=== PATIENT | male | born 1985 | race Hispanic/Latino ===

== ENCOUNTER 2017-06-19 23:12 | Emergency (ER) | payer SELFPAY | END 2017-06-20 00:04 | disposition home or self-care (01) | LOC: SCSER 23:12 | DX: L03.114 Cellulitis of left upper limb (principal); F17.210 Nicotine dependence, cigarettes, uncomplicated | CPT/HCPCS: 99283 ==

== ENCOUNTER 2021-07-16 03:36 | Inpatient (IN) | payer SELFPAY ==
[2021-07-16] MEDS ORDERED: Acetaminophen 500 MG TAB ONE (03:59)
[2021-07-16 04:11] LABS: #Lymphocytes 1.3 thou/uL (1.20-3.40); #Monocytes 0.5 thou/uL (0.11-0.59); #Neutrophils 5.8 thou/uL (1.40-6.50); %Basophils 0.5 % (0.0-1.0); %Eosinophils 0.4 % (0.0-10.0); %Lymphocytes 17.3 % (21.0-51.0); %Neutrophils 75.7 % (42.0-75.0); Hemoglobin 9.4 g/dL (14.0-18.0); Mean Corpuscular HGB CONC 32.9 g/dL (32.0-36.0); Mean Corpuscular Hemoglobin 26.5 pg (27.0-31.0); Mean Corpuscular Volume 80.5 fL (78.0-98.0); Mean Platelet Volume 9.6 fL (7.4-10.4); Platelet Count 172 thou/uL (130-400); RBC Distribution Width 15.6 % (11.5-14.5); Red Blood Cell (RBC) Count 3.53 mill/uL (4.70-6.10); White Blood Cell (WBC) Count 7.7 thou/uL (4.8-10.8)
[2021-07-16 04:32] LABS: ALT (SGPT) 462 U/L (8-55); AST (SGOT) 1225 U/L (5-34); Albumin 3.5 g/dL (3.5-5.0); Alkaline Phosphatase 190 U/L (40-110); Anion Gap 13 mmol/L (10-20); BUN (Urea Nitrogen) 7 mg/dL (8.9-20.6); Bilirubin, Total 2.4 mg/dL (0.2-1.2); Calc. Creatinine Clearance 0 mL/min (70-130); Calcium 7.7 mg/dL (7.8-10.44); Carbon Dioxide 22 mmol/L (22-29); Chloride 88 mmol/L (98-107); Globulin 3.5 g/dL (2.4-3.5); Glucose 124 mg/dL (70-105); Potassium 3.2 mmol/L (3.5-5.1); Sodium 120 mmol/L (136-145)
[2021-07-16] MEDS ORDERED: Lorazepam 2 MG/ML VIAL ONE ×6 (04:37→10:41)
[2021-07-16] MEDS ORDERED: Cefepime 2 GM VIAL ONE (04:44)
[2021-07-16 04:48] LABS: SARS-CoV-2 NAA Rapid Test Not Detected (NotDetected)
[2021-07-16] MEDS ORDERED: Vancomycin 1 GM/200 ML BAG ONE (05:19)
[2021-07-16] MEDS ORDERED: Lorazepam 2 MG/ML VIAL IM PRN (07:20)
[2021-07-16] MEDS ORDERED: Ondansetron ODT 4 MG TAB PO PRN (07:20)
[2021-07-16] MEDS ORDERED: Lorazepam 1 MG TAB PO PRN (07:20)
[2021-07-16] MEDS ORDERED: NS 0.9% w/ 20 MEQ KCL 1,000 ML/1,000 ML BAG IV SCH (07:30)
[2021-07-16] MEDS ORDERED: Electrolyte Replacement Protocol 1 EACH FS SCH (07:30)
[2021-07-16] MEDS ORDERED: Lorazepam 2 MG/ML VIAL SLOW IVP PRN ×2 (07:42→10:32)
[2021-07-16] MEDS ORDERED: Electrolyte Replacement Protocol FS PRN (07:45)
[2021-07-16 07:53] LABS: INR-International Normal Ratio 1.2; Prothrombin Time 15.8 sec (12.0-14.7)
[2021-07-16] MEDS ORDERED: Lorazepam 1 MG TAB PO SCH (08:00)
[2021-07-16 08:09] LABS: Phosphorus 1.9 mg/dL (2.3-4.7)
[2021-07-16 08:11] LABS: Bacteria/HPF 1+ HPF (None Seen); Bilirubin Negative (Negative); Blood, Urine 2+ (Negative); Clarity Clear (Clear); Glucose, Urine (Dipstick) Normal (Negative); Ketone, Urine Negative (Negative); Leukocyte Negative Leu/uL (Negative); Nitrite Negative (Negative); Protein, Urine (Dipstick) Negative (Neg-Trace); RBC/HPF None Seen HPF (0-3); Specific Gravity, Urine 1.004 (1.002-1.036); Squamous Epithelial 0-3 HPF (0-3); Urobilinogen Normal mg/dL (Less than 2); WBC/HPF 0-3 HPF (0-3); pH, Urine 6.5 (5.0-9.0)
[2021-07-16 08:11] LABS: Anion Gap 10 mmol/L (10-20); BUN (Urea Nitrogen) 8 mg/dL (8.9-20.6); Calc. Creatinine Clearance 0 mL/min (70-130); Calcium 7.6 mg/dL (7.8-10.44); Carbon Dioxide 25 mmol/L (22-29); Chloride 97 mmol/L (98-107); Glucose 114 mg/dL (70-105); Magnesium 2.6 mg/dL (1.6-2.6); Potassium 3.6 mmol/L (3.5-5.1); Sodium 128 mmol/L (136-145)
[2021-07-16 08:19] LABS: Syphilis Antibody Nonreactive (Nonreactive); Syphilis Antibody Index 0.04 S/CO (<1.00 Non-Reactive)
[2021-07-16] MEDS ORDERED: Potassium Phosphate 30 MMOL in Sodium Chloride 0.9% 500 ML IVPB SCH (09:00)
[2021-07-16] MEDS: Dextrose 5% in Water 1,000 ML IV SCH ×2 (09:11→15:37)
[2021-07-16] MEDS: Multivitamins, Adult 10 ML, Thiamine HCl 100 MG, Folic Acid 1 MG in Dextrose 5 %-0.45 %... IV SCH (09:32)
[2021-07-16 09:53] LABS: Amphetamine Not Detected (NotDetected); Barbiturates Screen Not Detected (NotDetected); Benzodiazepine Screen Not Detected (NotDetected); Cocaine Metabolite Screen Not Detected (NotDetected); Methadone Not Detected (NotDetected); Methamphetamine Not Detected (NotDetected); Opiate Screen Not Detected (NotDetected); Oxycodone Screen Not Detected (NotDetected); Phencyclidine (PCP) Not Detected (NotDetected); THC/Cannabinoid Screen Not Detected (NotDetected); Tricyclic Screen Not Detected (NotDetected)
[2021-07-16 10:17] LABS: Potassium, Urine Less than 10.0 mmol/L; Sodium, Urine Less than 20 mmol/L (Not Available)
[2021-07-16] MEDS ORDERED: Lorazepam 2 MG/ML VIAL SLOW IVP SCH ×2 (10:45→18:00)
[2021-07-16 13:20] LABS: Anion Gap 11 mmol/L (10-20); BUN (Urea Nitrogen) 8 mg/dL (8.9-20.6); Calc. Creatinine Clearance 0 mL/min (70-130); Calcium 7.8 mg/dL (7.8-10.44); Carbon Dioxide 23 mmol/L (22-29); Chloride 98 mmol/L (98-107); Glucose 121 mg/dL (70-105); Potassium 3.3 mmol/L (3.5-5.1); Sodium 129 mmol/L (136-145)
[2021-07-16 14:18] VITALS: BMI 23.4
[2021-07-16] MEDS: Folic Acid 1 MG TAB PO SCH (14:53)
[2021-07-16] MEDS: Multivit, Therapeutic 1 TAB PO SCH (14:53)
[2021-07-16] MEDS ORDERED: Piperacillin/Tazobactam 3.375 GM in Sodium Chloride 0.9% 100 ML IVPB SCH ×2 (15:15→16:00)
[2021-07-16 15:28] LABS: Anion Gap 8 mmol/L (10-20); BUN (Urea Nitrogen) 7 mg/dL (8.9-20.6); Calc. Creatinine Clearance 137 mL/min (70-130); Calcium 7.8 mg/dL (7.8-10.44); Carbon Dioxide 25 mmol/L (22-29); Chloride 98 mmol/L (98-107); Glucose 124 mg/dL (70-105); Potassium 3.2 mmol/L (3.5-5.1); Sodium 128 mmol/L (136-145)
[2021-07-16] MEDS: Lorazepam 2 MG/ML VIAL SLOW IVP SCH ×2 (15:34→20:22)
[2021-07-16] MEDS: Potassium Chloride 20 MEQ in Premix Bag 1 BAG IVPB SCH ×2 (15:34→17:52)
[2021-07-16] MEDS: Thiamine HCl 200 MG/2 ML VIAL SLOW IVP SCH (15:35)
[2021-07-16 19:30] LABS: Anion Gap 11 mmol/L (10-20); BUN (Urea Nitrogen) 8 mg/dL (8.9-20.6); Calc. Creatinine Clearance 129 mL/min (70-130); Calcium 7.5 mg/dL (7.8-10.44); Carbon Dioxide 24 mmol/L (22-29); Chloride 100 mmol/L (98-107); Glucose 111 mg/dL (70-105); Potassium 3.9 mmol/L (3.5-5.1); Sodium 131 mmol/L (136-145)
[2021-07-16] MEDS ORDERED: Acetaminophen 325 MG TAB PO PRN (19:42)
[2021-07-16] MEDS ORDERED: Ketorolac Tromethamine 30 MG/ML VIAL IVP SCH (20:15)
[2021-07-16] MEDS: Piperacillin/Tazobactam 3.375 GM in Sodium Chloride 0.9% 100 ML IVPB SCH (20:23)
[2021-07-17] MEDS: Piperacillin/Tazobactam 3.375 GM in Sodium Chloride 0.9% 100 ML IVPB SCH ×3 (03:42→20:08)
[2021-07-17] MEDS: Lorazepam 2 MG/ML VIAL SLOW IVP SCH ×4 (03:43→20:12)
[2021-07-17] MEDS ORDERED: Ketorolac Tromethamine 30 MG/ML VIAL ONE (03:45)
[2021-07-17] MEDS ORDERED: Ketorolac Tromethamine 30 MG/ML VIAL IVP SCH (03:45)
[2021-07-17] MEDS: Dextrose 5% in Water 1,000 ML IV SCH (03:53)
[2021-07-17 04:20] LABS: Hemoglobin 8.8 g/dL (14.0-18.0); Mean Corpuscular HGB CONC 32.3 g/dL (32.0-36.0); Mean Corpuscular Volume 83.4 fL (78.0-98.0); Platelet Count 146 thou/uL (130-400); RBC Distribution Width 15.8 % (11.5-14.5); Red Blood Cell (RBC) Count 3.27 mill/uL (4.70-6.10); White Blood Cell (WBC) Count 4.5 thou/uL (4.8-10.8)
[2021-07-17 04:44] LABS: ALT (SGPT) 429 U/L (8-55); AST (SGOT) 1254 U/L (5-34); Albumin 2.7 g/dL (3.5-5.0); Alkaline Phosphatase 146 U/L (40-110); Anion Gap 11 mmol/L (10-20); BUN (Urea Nitrogen) 12 mg/dL (8.9-20.6); Bilirubin, Total 2.6 mg/dL (0.2-1.2); Calc. Creatinine Clearance 113 mL/min (70-130); Calcium 7.3 mg/dL (7.8-10.44); Carbon Dioxide 22 mmol/L (22-29); Chloride 101 mmol/L (98-107); Globulin 2.8 g/dL (2.4-3.5); Glucose 117 mg/dL (70-105); Magnesium 2.7 mg/dL (1.6-2.6); Phosphorus 1.3 mg/dL (2.3-4.7); Potassium 3.8 mmol/L (3.5-5.1); Protein, Total 5.5 g/dL (6.0-8.3); Sodium 130 mmol/L (136-145)
[2021-07-17] MEDS ORDERED: Potassium Phosphate 22 MMOL in Sodium Chloride 0.9% 250 ML 250 ML IVPB SCH (05:00)
[2021-07-17 05:06] LABS: Band 28 % (5-11); Eosinophils 1 % (0-10); Lymphocytes 9 % (21-51); MDiff Complete? YES; Monocytes 6 % (0-10); Neutrophil 55 % (42-75); Reactive Lymphocytes 1 % (0-10)
[2021-07-17] MEDS ORDERED: Lorazepam 1 MG TAB PO PRN (07:21)
[2021-07-17] MEDS: Folic Acid 1 MG TAB PO SCH (08:43)
[2021-07-17] MEDS: Multivit, Therapeutic 1 TAB PO SCH (08:43)
[2021-07-17] MEDS: Multivitamins, Adult 10 ML, Thiamine HCl 100 MG, Folic Acid 1 MG in Dextrose 5 %-0.45 %... IV SCH (10:01)
[2021-07-17] MEDS: Lorazepam 2 MG/ML VIAL SLOW IVP PRN (11:50)
[2021-07-17] MEDS: Thiamine HCl 200 MG/2 ML VIAL SLOW IVP SCH (12:38)
[2021-07-17 15:00] LABS: Anion Gap 11 mmol/L (10-20); BUN (Urea Nitrogen) 12 mg/dL (8.9-20.6); CK (CPK) 189 U/L (30-200); Calc. Creatinine Clearance 126 mL/min (70-130); Calcium 7.6 mg/dL (7.8-10.44); Carbon Dioxide 23 mmol/L (22-29); Chloride 101 mmol/L (98-107); Glucose 112 mg/dL (70-105); Potassium 3.3 mmol/L (3.5-5.1); Sodium 132 mmol/L (136-145)
[2021-07-17] MEDS ORDERED: Potassium Phosphate 30 MMOL in Sodium Chloride 0.9% 250 ML 250 ML IVPB SCH (17:00)
[2021-07-17] MEDS: Acetaminophen 325 MG Suppository PR PRN (18:05)
[2021-07-17] MEDS: Dextrose 5 % And 0.9 % NaCl 1,000 ML IV SCH (19:40)
[2021-07-17] MEDS ORDERED: Acetaminophen 325 MG TAB PO PRN (23:35)
[2021-07-18 03:25] LABS: #Eosinphils 0.1 thou/uL (0.0-0.7); #Lymphocytes 0.7 thou/uL (1.20-3.40); #Monocytes 0.2 thou/uL (0.11-0.59); #Neutrophils 2.7 thou/uL (1.40-6.50); %Basophils 0.6 % (0.0-1.0); %Eosinophils 2.7 % (0.0-10.0); %Lymphocytes 18.5 % (21.0-51.0); %Monocytes 4.9 % (0.0-10.0); %Neutrophils 73.3 % (42.0-75.0); Hemoglobin 9.3 g/dL (14.0-18.0); Mean Corpuscular HGB CONC 32.5 g/dL (32.0-36.0); Mean Corpuscular Volume 82.9 fL (78.0-98.0); Mean Platelet Volume 9.8 fL (7.4-10.4); Platelet Count 175 thou/uL (130-400); RBC Distribution Width 16.1 % (11.5-14.5); Red Blood Cell (RBC) Count 3.43 mill/uL (4.70-6.10); White Blood Cell (WBC) Count 3.7 thou/uL (4.8-10.8)
[2021-07-18 03:48] LABS: ALT (SGPT) 489 U/L (8-55); AST (SGOT) 1426 U/L (5-34); Albumin 2.7 g/dL (3.5-5.0); Alkaline Phosphatase 170 U/L (40-110); Anion Gap 11 mmol/L (10-20); BUN (Urea Nitrogen) 11 mg/dL (8.9-20.6); Calc. Creatinine Clearance 127 mL/min (70-130); Calcium 7.3 mg/dL (7.8-10.44); Carbon Dioxide 23 mmol/L (22-29); Chloride 103 mmol/L (98-107); Globulin 2.9 g/dL (2.4-3.5); Glucose 97 mg/dL (70-105); Potassium 3.7 mmol/L (3.5-5.1); Protein, Total 5.6 g/dL (6.0-8.3); Sodium 133 mmol/L (136-145)
[2021-07-18 04:06] LABS: HBSAB Concentration Less than 8.00 mIU/mL; Hep B Surf AB Non-Reactive (NonReactive)
[2021-07-18] MEDS: Lorazepam 2 MG/ML VIAL SLOW IVP SCH ×2 (04:10→11:25)
[2021-07-18] MEDS: Piperacillin/Tazobactam 3.375 GM in Sodium Chloride 0.9% 100 ML IVPB SCH ×3 (04:10→19:58)
[2021-07-18] MEDS ORDERED: Vancomycin 1.5 GRAM/300 ML BAG 1.5 GM in Premix Bag 1 BAG IVPB SCH (04:30)
[2021-07-18] MEDS: Acetaminophen 325 MG Suppository PR PRN (06:34)
[2021-07-18] MEDS: Lorazepam 2 MG/ML VIAL SLOW IVP PRN ×2 (06:40→22:25)
[2021-07-18 06:47] LABS: Phosphorus 1.9 mg/dL (2.3-4.7)
[2021-07-18] MEDS ORDERED: Potassium Phosphate 15 MMOL in Sodium Chloride 0.9% 100 ML IVPB SCH (07:00)
[2021-07-18] MEDS ORDERED: Lorazepam 1 MG TAB PO PRN (07:21)
[2021-07-18] MEDS ORDERED: Lorazepam 0.5 MG TAB PO SCH (08:00)
[2021-07-18] MEDS: Multivitamins, Adult 10 ML, Thiamine HCl 100 MG, Folic Acid 1 MG in Dextrose 5 %-0.45 %... IV SCH (11:25)
[2021-07-18] MEDS: Thiamine HCl 200 MG/2 ML VIAL SLOW IVP SCH (11:26)
[2021-07-18] MEDS: Dextrose 5 % And 0.9 % NaCl 1,000 ML IV SCH (14:24)
[2021-07-18] MEDS: Multivit, Therapeutic 1 TAB PO SCH (14:25)
[2021-07-18] MEDS: Folic Acid 1 MG TAB PO SCH (14:25)
[2021-07-18] MEDS ORDERED: Calcium Carbonate 500 MG ChewTAB PO PRN (17:10)
[2021-07-18] MEDS: Vancomycin 1 GM in Premix Bag 1 BAG IVPB SCH ×2 (17:22→20:52)
[2021-07-18] MEDS: Famotidine/PF 20 mg/2ml Vial SLOW IVP SCH (20:50)
[2021-07-18] MEDS: Famotidine 20 MG TAB PO SCH (22:22)
[2021-07-19 03:58] LABS: #Eosinphils 0.1 thou/uL (0.0-0.7); #Lymphocytes 1.2 thou/uL (1.20-3.40); #Monocytes 0.3 thou/uL (0.11-0.59); #Neutrophils 3.6 thou/uL (1.40-6.50); %Basophils 0.9 % (0.0-1.0); %Lymphocytes 22.8 % (21.0-51.0); %Monocytes 5.1 % (0.0-10.0); %Neutrophils 69.3 % (42.0-75.0); Hemoglobin 9.2 g/dL (14.0-18.0); Mean Corpuscular HGB CONC 32.4 g/dL (32.0-36.0); Mean Corpuscular Hemoglobin 27.1 pg (27.0-31.0); Mean Corpuscular Volume 83.6 fL (78.0-98.0); Mean Platelet Volume 9.9 fL (7.4-10.4); Platelet Count 192 thou/uL (130-400); RBC Distribution Width 16.2 % (11.5-14.5); White Blood Cell (WBC) Count 5.2 thou/uL (4.8-10.8)
[2021-07-19 04:08] LABS: INR-International Normal Ratio 1.1; PTT 43.2 sec (22.9-36.1); Prothrombin Time 14.4 sec (12.0-14.7)
[2021-07-19 04:20] LABS: Vancomycin, Trough 9.8 ug/mL
[2021-07-19 04:21] LABS: Lipase 18 U/L (8-78)
[2021-07-19 04:23] LABS: ALT (SGPT) 514 U/L (8-55); AST (SGOT) 1299 U/L (5-34); Albumin 2.6 g/dL (3.5-5.0); Alkaline Phosphatase 192 U/L (40-110); Anion Gap 12 mmol/L (10-20); BUN (Urea Nitrogen) 8 mg/dL (8.9-20.6); Calc. Creatinine Clearance 126 mL/min (70-130); Calcium 7.4 mg/dL (7.8-10.44); Carbon Dioxide 20 mmol/L (22-29); Chloride 99 mmol/L (98-107); Globulin 3.1 g/dL (2.4-3.5); Glucose 95 mg/dL (70-105); Iron 16 ug/dL (65-175); Iron Binding Capacity, Total 270 mcg/dL (261-462); Potassium 3.8 mmol/L (3.5-5.1); Protein, Total 5.7 g/dL (6.0-8.3); Sodium 127 mmol/L (136-145)
[2021-07-19 04:25] LABS: Phosphorus 1.8 mg/dL (2.3-4.7)
[2021-07-19 04:52] LABS: HBCM Index 0.06 S/CO (0-0.79); HBSAg Index 0.28 S/CO (0-0.99); Hep A IgM AB Non-Reactive (NonReactive); Hep A IgM S/CO 0.21 S/CO (0-0.79); Hep B Surf Ag Non-Reactive S/CO (NonReactive); Hep C IgG Ab Non-Reactive (NonReactive); Hep C Index 0.31 S/CO (0-0.79); Hepatitis B Core IgM Abs Non-Reactive (NonReactive)
[2021-07-19] MEDS: Piperacillin/Tazobactam 3.375 GM in Sodium Chloride 0.9% 100 ML IVPB SCH ×3 (05:23→21:00)
[2021-07-19] MEDS: Vancomycin 1 GM in Premix Bag 1 BAG IVPB SCH (05:25)
[2021-07-19] MEDS ORDERED: Acetaminophen 325 MG TAB PO SCH (05:30)
[2021-07-19 05:34] LABS: Ferritin 15078.75 ng/mL (22-322)
[2021-07-19] MEDS ORDERED: Vancomycin 1 GM in Premix Bag 1 BAG IVPB SCH (06:00)
[2021-07-19] MEDS ORDERED: Lorazepam 0.5 MG TAB PO PRN (07:21)
[2021-07-19] MEDS ORDERED: Potassium Phosphate 15 MMOL in Sodium Chloride 0.9% 100 ML IVPB SCH (08:00)
[2021-07-19] MEDS ORDERED: THIAMINE HCL IV SCH ×2 (09:00→18:00)
[2021-07-19] MEDS ORDERED: [UNRECOGNIZED DRUG - OTHER] IV SCH ×2 (09:00→18:00)
[2021-07-19] MEDS ORDERED: FOLIC ACID IV SCH ×2 (09:00→18:00)
[2021-07-19] MEDS ORDERED: MULTIVITAMINS IV SCH ×2 (09:00→18:00)
[2021-07-19] MEDS: Thiamine 100 MG TAB PO SCH (09:30)
[2021-07-19] MEDS: Famotidine 20 MG TAB PO SCH ×2 (09:30→21:09)
[2021-07-19] MEDS: Multivit, Therapeutic 1 TAB PO SCH (09:30)
[2021-07-19] MEDS: Folic Acid 1 MG TAB PO SCH (09:30)
[2021-07-19] MEDS: Famotidine/PF 20 mg/2ml Vial SLOW IVP SCH ×2 (09:49→21:00)
[2021-07-19] MEDS: Dextrose 5 % And 0.9 % NaCl 1,000 ML IV SCH (09:49)
[2021-07-19 12:00] LABS: T4 6.8 ug/dL (4.87-11.72); Thyroid Stimulating Hormone 1.299 uIU/mL (0.35-4.94)
[2021-07-19 12:28] LABS: Iron 16 ug/dL (65-175); Iron Binding Capacity, Total 259 mcg/dL (261-462)
[2021-07-19 16:24] LABS: Anion Gap 12 mmol/L (10-20); BUN (Urea Nitrogen) 7 mg/dL (8.9-20.6); Calc. Creatinine Clearance 131 mL/min (70-130); Calcium 7.4 mg/dL (7.8-10.44); Carbon Dioxide 20 mmol/L (22-29); Chloride 103 mmol/L (98-107); Glucose 102 mg/dL (70-105); Potassium 3.9 mmol/L (3.5-5.1); Sodium 131 mmol/L (136-145)
[2021-07-20 03:54] LABS: #Basophils 0.1 thou/uL (0.0-0.2); #Eosinphils 0.1 thou/uL (0.0-0.7); #Lymphocytes 1.6 thou/uL (1.20-3.40); #Monocytes 0.4 thou/uL (0.11-0.59); #Neutrophils 4.5 thou/uL (1.40-6.50); %Eosinophils 1.1 % (0.0-10.0); %Lymphocytes 24.2 % (21.0-51.0); %Monocytes 5.8 % (0.0-10.0); Hemoglobin 9.3 g/dL (14.0-18.0); Mean Corpuscular HGB CONC 32.7 g/dL (32.0-36.0); Mean Corpuscular Hemoglobin 27.1 pg (27.0-31.0); Mean Corpuscular Volume 82.9 fL (78.0-98.0); Platelet Count 174 thou/uL (130-400); RBC Distribution Width 16.2 % (11.5-14.5); Red Blood Cell (RBC) Count 3.41 mill/uL (4.70-6.10); White Blood Cell (WBC) Count 6.6 thou/uL (4.8-10.8)
[2021-07-20 04:24] LABS: Phosphorus 2.1 mg/dL (2.3-4.7)
[2021-07-20 04:25] LABS: ALT (SGPT) 499 U/L (8-55); AST (SGOT) 1104 U/L (5-34); Albumin 2.6 g/dL (3.5-5.0); Alkaline Phosphatase 215 U/L (40-110); Anion Gap 12 mmol/L (10-20); BUN (Urea Nitrogen) 8 mg/dL (8.9-20.6); Bilirubin, Total 3.6 mg/dL (0.2-1.2); Calc. Creatinine Clearance 129 mL/min (70-130); Calcium 7.5 mg/dL (7.8-10.44); Carbon Dioxide 20 mmol/L (22-29); Chloride 100 mmol/L (98-107); Globulin 3.2 g/dL (2.4-3.5); Glucose 91 mg/dL (70-105); Magnesium 2.1 mg/dL (1.6-2.6); Potassium 3.7 mmol/L (3.5-5.1); Protein, Total 5.8 g/dL (6.0-8.3); Sodium 128 mmol/L (136-145)
[2021-07-20] MEDS: Piperacillin/Tazobactam 3.375 GM in Sodium Chloride 0.9% 100 ML IVPB SCH ×3 (04:37→20:33)
[2021-07-20] MEDS ORDERED: Potassium Phosphate 30 MMOL in Sodium Chloride 0.9% 250 ML 250 ML IVPB SCH (06:30)
[2021-07-20] MEDS ORDERED: cloNIDine 0.1 MG TAB PO PRN (08:50)
[2021-07-20] MEDS ORDERED: Ergocalciferol 1.25 MG(50,000 UNITS) CAP PO SCH (09:00)
[2021-07-20] MEDS: Multivit, Therapeutic 1 TAB PO SCH (09:55)
[2021-07-20] MEDS: Ferrous Sulfate 325 MG TAB PO SCH ×3 (09:56→20:33)
[2021-07-20] MEDS: Calcium Carbonate 600 MG + Vit D TAB PO SCH ×2 (09:56→16:14)
[2021-07-20] MEDS: Famotidine 20 MG TAB PO SCH ×2 (09:56→22:49)
[2021-07-20] MEDS: Thiamine 100 MG TAB PO SCH (09:57)
[2021-07-20] MEDS: Famotidine/PF 20 mg/2ml Vial SLOW IVP SCH ×2 (09:57→20:33)
[2021-07-20] MEDS: Sodium Chloride 1 GM TAB PO SCH ×3 (09:57→20:36)
[2021-07-20] MEDS: Folic Acid 1 MG TAB PO SCH (09:57)
[2021-07-20] MEDS: Thiamine HCl 200 MG/2 ML VIAL SLOW IVP SCH (10:10)
[2021-07-20] MEDS: Sodium Bicarbonate Tab 325 MG TAB PO SCH ×3 (16:13→20:36)
[2021-07-20] MEDS: Lorazepam 2 MG/ML VIAL SLOW IVP PRN (20:47)
[2021-07-21] MEDS ORDERED: Ketorolac Tromethamine 30 MG/ML VIAL IVP SCH (01:00)
[2021-07-21] MEDS: Lorazepam 2 MG/ML VIAL SLOW IVP PRN ×4 (01:01→18:18)
[2021-07-21] MEDS: Piperacillin/Tazobactam 3.375 GM in Sodium Chloride 0.9% 100 ML IVPB SCH ×2 (05:12→11:22)
[2021-07-21] MEDS: Famotidine 20 MG TAB PO SCH ×2 (10:20→22:36)
[2021-07-21] MEDS: Thiamine 100 MG TAB PO SCH (10:20)
[2021-07-21] MEDS: Multivit, Therapeutic 1 TAB PO SCH ×2 (10:20→10:25)
[2021-07-21] MEDS: Calcium Carbonate 600 MG + Vit D TAB PO SCH ×2 (10:23→16:06)
[2021-07-21] MEDS: Sodium Chloride 1 GM TAB PO SCH ×3 (10:23→22:37)
[2021-07-21] MEDS: Famotidine/PF 20 mg/2ml Vial SLOW IVP SCH ×2 (10:23→21:45)
[2021-07-21] MEDS: Ferrous Sulfate 325 MG TAB PO SCH ×3 (10:23→21:45)
[2021-07-21] MEDS: Thiamine HCl 200 MG/2 ML VIAL SLOW IVP SCH (10:23)
[2021-07-21] MEDS: Sodium Bicarbonate Tab 325 MG TAB PO SCH ×3 (10:23→22:37)
[2021-07-21] MEDS: Folic Acid 1 MG TAB PO SCH (10:25)
[2021-07-21 10:55] LABS: #Basophils 0.1 thou/uL (0.0-0.2); #Lymphocytes 0.5 thou/uL (1.20-3.40); #Monocytes 0.4 thou/uL (0.11-0.59); #Neutrophils 4.5 thou/uL (1.40-6.50); %Eosinophils 0.6 % (0.0-10.0); %Lymphocytes 9.9 % (21.0-51.0); %Monocytes 7.1 % (0.0-10.0); %Neutrophils 81.4 % (42.0-75.0); Mean Corpuscular HGB CONC 33.3 g/dL (32.0-36.0); Mean Corpuscular Hemoglobin 27.2 pg (27.0-31.0); Mean Corpuscular Volume 81.8 fL (78.0-98.0); Mean Platelet Volume 10.4 fL (7.4-10.4); Platelet Count 152 thou/uL (130-400); RBC Distribution Width 16.5 % (11.5-14.5); Red Blood Cell (RBC) Count 3.29 mill/uL (4.70-6.10); White Blood Cell (WBC) Count 5.5 thou/uL (4.8-10.8)
[2021-07-21 11:15] LABS: ALT (SGPT) 443 U/L (8-55); AST (SGOT) 767 U/L (5-34); Albumin 2.6 g/dL (3.5-5.0); Alkaline Phosphatase 226 U/L (40-110); Anion Gap 12 mmol/L (10-20); BUN (Urea Nitrogen) 12 mg/dL (8.9-20.6); Bilirubin, Total 2.9 mg/dL (0.2-1.2); Calc. Creatinine Clearance 121 mL/min (70-130); Calcium 7.9 mg/dL (7.8-10.44); Carbon Dioxide 21 mmol/L (22-29); Chloride 104 mmol/L (98-107); Globulin 3.3 g/dL (2.4-3.5); Glucose 103 mg/dL (70-105); Magnesium 2.3 mg/dL (1.6-2.6); Potassium 3.6 mmol/L (3.5-5.1); Protein, Total 5.9 g/dL (6.0-8.3); Sodium 133 mmol/L (136-145)
[2021-07-21 11:17] LABS: Phosphorus 3.5 mg/dL (2.3-4.7)
[2021-07-21 18:14] LABS: Smooth Muscle Total ABS 8 Units (0-19)
[2021-07-21] MEDS: Acetaminophen 650 MG/20.3 ML UDCUP PO PRN (18:14)
[2021-07-22] MEDS: Lorazepam 2 MG/ML VIAL SLOW IVP PRN ×3 (03:15→06:11)
[2021-07-22 05:04] LABS: #Basophils 0.1 thou/uL (0.0-0.2); #Eosinphils 0.1 thou/uL (0.0-0.7); #Lymphocytes 0.7 thou/uL (1.20-3.40); #Monocytes 0.3 thou/uL (0.11-0.59); #Neutrophils 3.2 thou/uL (1.40-6.50); %Basophils 1.3 % (0.0-1.0); %Eosinophils 1.9 % (0.0-10.0); %Monocytes 6.8 % (0.0-10.0); Hemoglobin 8.4 g/dL (14.0-18.0); Mean Corpuscular HGB CONC 32.7 g/dL (32.0-36.0); Mean Corpuscular Hemoglobin 26.9 pg (27.0-31.0); Mean Corpuscular Volume 82.3 fL (78.0-98.0); Mean Platelet Volume 10.6 fL (7.4-10.4); Platelet Count 158 thou/uL (130-400); RBC Distribution Width 16.4 % (11.5-14.5); Red Blood Cell (RBC) Count 3.12 mill/uL (4.70-6.10); White Blood Cell (WBC) Count 4.4 thou/uL (4.8-10.8)
[2021-07-22 05:23] LABS: ALT (SGPT) 413 U/L (8-55); AST (SGOT) 639 U/L (5-34); Albumin 2.6 g/dL (3.5-5.0); Alkaline Phosphatase 240 U/L (40-110); Anion Gap 12 mmol/L (10-20); BUN (Urea Nitrogen) 10 mg/dL (8.9-20.6); Bilirubin, Total 2.9 mg/dL (0.2-1.2); Calc. Creatinine Clearance 135 mL/min (70-130); Calcium 7.7 mg/dL (7.8-10.44); Carbon Dioxide 21 mmol/L (22-29); Chloride 105 mmol/L (98-107); Globulin 3.2 g/dL (2.4-3.5); Glucose 100 mg/dL (70-105); Potassium 3.5 mmol/L (3.5-5.1); Protein, Total 5.8 g/dL (6.0-8.3); Sodium 134 mmol/L (136-145)
[2021-07-22] MEDS ORDERED: Potassium Chloride 20 MEQ TAB PO SCH (07:00)
[2021-07-22] MEDS: Ferrous Sulfate 325 MG TAB PO SCH ×3 (09:03→20:37)
[2021-07-22] MEDS: Folic Acid 1 MG TAB PO SCH (09:03)
[2021-07-22] MEDS: Multivit, Therapeutic 1 TAB PO SCH (09:03)
[2021-07-22] MEDS: Calcium Carbonate 600 MG + Vit D TAB PO SCH ×2 (09:04→17:48)
[2021-07-22] MEDS: Famotidine 20 MG TAB PO SCH ×2 (09:06→20:37)
[2021-07-22] MEDS: Sodium Chloride 1 GM TAB PO SCH ×3 (09:06→20:36)
[2021-07-22] MEDS: Famotidine/PF 20 mg/2ml Vial SLOW IVP SCH ×2 (09:06→22:10)
[2021-07-22] MEDS: Sodium Bicarbonate Tab 325 MG TAB PO SCH ×3 (09:11→20:39)
[2021-07-22] MEDS: Thiamine HCl 200 MG/2 ML VIAL SLOW IVP SCH (09:11)
[2021-07-22 11:00] LABS: INR-International Normal Ratio 1.2; Prothrombin Time 14.8 sec (12.0-14.7)
[2021-07-22 12:13] LABS: HIV-1 Quantitative, RNA PCR <20 copies/mL (.)
[2021-07-22 15:47] LABS: ANA Symphony (Qualitative) Negative (Negative); ANA Symphony (Quantitative) 0.3 Ratio (< 0.7 Negative); dsDNA IgG Antibody 0.9 IU/mL (<10 Negative)
[2021-07-22 17:10] LABS: EliA Vaculitis New Method **** NEW METHOD ****; Mitochondrial Ab 1.1 U/mL (<4 Negative)
[2021-07-22] MEDS: Acetaminophen 650 MG/20.3 ML UDCUP PO PRN ×2 (18:29)
[2021-07-22 22:35] VITALS: BP 97/58
[2021-07-23] MEDS: Acetaminophen 650 MG/20.3 ML UDCUP PO PRN ×3 (04:15→22:03)
[2021-07-23 04:21] LABS: ALT (SGPT) 393 U/L (8-55); AST (SGOT) 552 U/L (5-34); Albumin 2.6 g/dL (3.5-5.0); Alkaline Phosphatase 295 U/L (40-110); Bilirubin, Total 2.4 mg/dL (0.2-1.2)
[2021-07-23] MEDS: Multivit, Therapeutic 1 TAB PO SCH (08:30)
[2021-07-23] MEDS: Ferrous Sulfate 325 MG TAB PO SCH ×3 (08:30→22:00)
[2021-07-23] MEDS: Famotidine 20 MG TAB PO SCH ×2 (08:30→22:00)
[2021-07-23] MEDS: Folic Acid 1 MG TAB PO SCH (08:30)
[2021-07-23] MEDS: Calcium Carbonate 600 MG + Vit D TAB PO SCH ×2 (08:30→17:12)
[2021-07-23] MEDS: Sodium Bicarbonate Tab 325 MG TAB PO SCH ×3 (08:30→22:00)
[2021-07-23] MEDS: Sodium Chloride 1 GM TAB PO SCH ×3 (08:32→22:00)
[2021-07-23] MEDS: Famotidine/PF 20 mg/2ml Vial SLOW IVP SCH ×2 (08:33→22:01)
[2021-07-23] MEDS: Thiamine HCl 200 MG/2 ML VIAL SLOW IVP SCH (08:35)
[2021-07-23 11:33] LABS: SARS-CoV-2 PCR by NAA Not Detected (NotDetected)
[2021-07-23 15:13] LABS: Alpha-1-Antitrypsin 259 mg/dL (95-164)
[2021-07-23 15:56] LABS: Anion Gap 11 mmol/L (10-20); BUN (Urea Nitrogen) 9 mg/dL (8.9-20.6); Calc. Creatinine Clearance 134 mL/min (70-130); Calcium 7.9 mg/dL (7.8-10.44); Carbon Dioxide 22 mmol/L (22-29); Chloride 104 mmol/L (98-107); Glucose 116 mg/dL (70-105); Potassium 3.8 mmol/L (3.5-5.1); Sodium 133 mmol/L (136-145)
[2021-07-24 04:09] LABS: ALT (SGPT) 325 U/L (8-55); AST (SGOT) 392 U/L (5-34); Albumin 2.4 g/dL (3.5-5.0); Alkaline Phosphatase 328 U/L (40-110); Anion Gap 12 mmol/L (10-20); BUN (Urea Nitrogen) 8 mg/dL (8.9-20.6); Bilirubin, Total 2.1 mg/dL (0.2-1.2); Calc. Creatinine Clearance 138 mL/min (70-130); Calcium 7.6 mg/dL (7.8-10.44); Carbon Dioxide 19 mmol/L (22-29); Chloride 107 mmol/L (98-107); Globulin 3.4 g/dL (2.4-3.5); Glucose 103 mg/dL (70-105); Potassium 3.8 mmol/L (3.5-5.1); Protein, Total 5.8 g/dL (6.0-8.3); Sodium 134 mmol/L (136-145)
[2021-07-24 04:40] VITALS: TEMP 98.1
[2021-07-24] MEDS: Sodium Chloride 1 GM TAB PO SCH (08:49)
[2021-07-24] MEDS: Multivit, Therapeutic 1 TAB PO SCH (08:49)
[2021-07-24] MEDS: Ferrous Sulfate 325 MG TAB PO SCH (08:49)
[2021-07-24] MEDS: Famotidine 20 MG TAB PO SCH (08:49)
[2021-07-24] MEDS: Famotidine/PF 20 mg/2ml Vial SLOW IVP SCH (08:49)
[2021-07-24] MEDS: Folic Acid 1 MG TAB PO SCH (08:49)
[2021-07-24] MEDS: Sodium Bicarbonate Tab 325 MG TAB PO SCH (08:49)
[2021-07-24] MEDS: Calcium Carbonate 600 MG + Vit D TAB PO SCH (08:49)
[2021-07-24] MEDS: Thiamine HCl 200 MG/2 ML VIAL SLOW IVP SCH (08:50)
== END 2021-07-24 13:20 | disposition home or self-care (01) | DRG 896 ==
LOC: ERS 03:36 → ERHOLD 05:10 → CCU 14:05 → IMCU/EMU 07-17 12:08
PROVIDERS: ADMIT Student in an Organized Health Care Education/Training Program; ATTEND Family Medicine
PROC: HZ2ZZZZ Detoxification Services for Substance Abuse Treatment (ICD-10-PCS; principal; 2021-07-16)
DX: F10.231 Alcohol dependence with withdrawal delirium (principal); K72.00 Acute and subacute hepatic failure without coma; G92.8 Other toxic encephalopathy; M62.82 Rhabdomyolysis; D61.818 Other pancytopenia; E22.2 Syndrome of inappropriate secretion of antidiuretic hormone; E87.2 Acidosis; Z20.822 Contact with and (suspected) exposure to COVID-19; D50.9 Iron deficiency anemia, unspecified; K70.30 Alcoholic cirrhosis of liver without ascites; Y90.0 Blood alcohol level of less than 20 mg/100 ml; K70.10 Alcoholic hepatitis without ascites; F17.210 Nicotine dependence, cigarettes, uncomplicated; E87.6 Hypokalemia; E83.39 Other disorders of phosphorus metabolism; F14.10 Cocaine abuse, uncomplicated; R01.1 Cardiac murmur, unspecified; Z78.1 Physical restraint status; Z79.899 Other long term (current) drug therapy
CPT/HCPCS: 0240U; 36415; 70450; 71045; 76705; 80053; 80074; 80076; 80202; 80306; 80307; 81003; 81015; 82103; 82104; 82140; 82306; 82436; 82550; 82728; 83516; 83540; 83550; 83605; 83690; 83735; 83930; 83935; 84100; 84133; 84300; 84436; 84443; 85025; 85610; 85730; 86038; 86225; 86706; 86780; 87040; 87086; 87536; 93005; 96365; 96366; 96367; 96368; 96375; 96376; J0692; J1885; J2060; J2543; J3370; J3411; J3480; J3490; J7042; J7050; J7070; S0028; U0003; U0005

== ENCOUNTER 2022-09-23 04:05 | Observation (INO) | payer SELFPAY ==
[2022-09-23] MEDS ORDERED: Morphine 4 MG/ML VIAL ONE (04:49)
[2022-09-23] MEDS ORDERED: Ondansetron PF 4 MG/2 ML Vial ONE ×2 (04:49→10:20)
[2022-09-23 05:02] LABS: #Lymphocytes 0.4 thou/uL (1.20-3.40); #Monocytes 1.3 thou/uL (0.11-0.59); #Neutrophils 13.5 thou/uL (1.40-6.50); %Basophils 0.3 % (0.0-1.0); %Eosinophils 0.1 % (0.0-10.0); %Lymphocytes 2.8 % (21.0-51.0); %Monocytes 8.5 % (0.0-10.0); %Neutrophils 88.3 % (42.0-75.0); Hemoglobin 13.1 g/dL (14.0-18.0); Mean Corpuscular HGB CONC 34.4 g/dL (32.0-36.0); Mean Corpuscular Hemoglobin 33.2 pg (27.0-31.0); Mean Corpuscular Volume 96.5 fl (78.0-98.0); Mean Platelet Volume 7.1 fL (7.4-10.4); Platelet Count 245 10x3/uL (130-400); RBC Distribution Width 11.5 % (11.5-14.5); Red Blood Cell (RBC) Count 3.96 mill/uL (4.70-6.10); White Blood Cell (WBC) Count 15.3 10x3/uL (4.8-10.8)
[2022-09-23 05:25] LABS: ALT (SGPT) 105 U/L (8-55); AST (SGOT) 150 U/L (5-34); Alkaline Phosphatase 133 U/L (40-110); Anion Gap 19 mmol/L (10-20); BUN (Urea Nitrogen) 9 mg/dL (8.9-20.6); Bilirubin, Total 1.6 mg/dL (0.2-1.2); Calc. Creatinine Clearance 0 mL/min (70-130); Calcium 9.6 mg/dL (7.8-10.44); Carbon Dioxide 21 mmol/L (22-29); Chloride 102 mmol/L (98-107); Estimated GFR 120; Globulin 3.7 g/dL (2.4-3.5); Glucose 120 mg/dL (70-105); Lipase 8 U/L (8-78); Potassium 3.6 mmol/L (3.5-5.1); Protein, Total 8.7 g/dL (6.0-8.3); Sodium 138 mmol/L (136-145)
[2022-09-23] MEDS ORDERED: Piperacillin/Tazobactam 4.5 GM VIAL ONE (05:48)
[2022-09-23 07:18] LABS: Bilirubin Negative (Negative); Blood, Urine Negative (Negative); Clarity Clear (Clear); Glucose, Urine (Dipstick) Normal (Negative); Ketone, Urine 10 mg/dL (Negative); Leukocyte Negative Leu/uL (Negative); Nitrite Negative (Negative); Protein, Urine (Dipstick) Negative (Neg-Trace); Specific Gravity, Urine 1.037 (1.002-1.036); Urobilinogen Normal mg/dL (Less than 2)
[2022-09-23 07:58] LABS: SARS-CoV-2 NAA Rapid Test Not Detected (NotDetected)
[2022-09-23] MEDS ORDERED: Iopamidol-370 76% 500 ML 1 ML ONE (09:17)
[2022-09-23] MEDS ORDERED: Bupivacaine/Epinephrine 0.25% 30 ML VIAL ONE (09:29)
[2022-09-23] MEDS ORDERED: Midazolam HCl 2 mg/2 ml Vial ONE ×2 (10:00→10:20)
[2022-09-23] MEDS ORDERED: Famotidine/PF 20 mg/2ml Vial ONE (10:06)
[2022-09-23] MEDS ORDERED: Fentanyl 100 MCG/2 ML VIAL ONE ×2 (10:06→11:37)
[2022-09-23] MEDS ORDERED: SUGAMMADEX SODIUM 200 MG/2 ML VIAL ONE (10:07)
[2022-09-23] MEDS ORDERED: Metoclopramide HCl 10 MG/2 ML VIAL ONE (10:20)
[2022-09-23] MEDS ORDERED: Lidocaine 1% PF 5 ML VIAL ONE (10:20)
[2022-09-23] MEDS ORDERED: PROPOFOL 200 MG/20 ML VIAL ONE (10:20)
[2022-09-23] MEDS ORDERED: Dexamethasone 20 MG/5 ML VIAL ONE (10:20)
[2022-09-23] MEDS ORDERED: Ketorolac Tromethamine 30 MG/ML VIAL ONE (10:20)
[2022-09-23] MEDS ORDERED: Rocuronium Bromide 10 MG/ML (10ML VIAL) ONE (10:20)
[2022-09-23] MEDS ORDERED: Succinylcholine Chloride 100 MG/5 ML SYRINGE FS ONE (10:20)
[2022-09-23] MEDS ORDERED: HYDROcodone/Acetaminophen 5/325 mg Tablet ONE (12:45)
== END 2022-09-23 13:30 | disposition home or self-care (01) ==
LOC: ERS 04:05 → INTOOBSV 06:46 → ERHOLD 06:46
PROVIDERS: ADMIT Surgery; ATTEND Surgery
PROC: 0DTJ4ZZ Resection of Appendix, Percutaneous Endoscopic Approach (ICD-10-PCS; principal; 2022-09-23)
DX: K35.30 Acute appendicitis with localized peritonitis, without perforation or gangrene (principal); K38.8 Other specified diseases of appendix; K76.0 Fatty (change of) liver, not elsewhere classified; F10.10 Alcohol abuse, uncomplicated; Z20.822 Contact with and (suspected) exposure to COVID-19
CPT/HCPCS: 74177; 80053; 81003; 83690; 85025; 87086; 88304; 93005; 96374; 96375; A4649; J1100; J1885; J2250; J2270; J2405; J2543; J2704; J2765; J3010; Q9967; S0028